=== PATIENT | female | born 1995 | race Caucasian/White ===

== ENCOUNTER → 2018-05-20 | Outpatient (CLI) | payer BC ==
--- NOTE | 2018-05-20 11:58 | BD ---
EXAMINATION TYPE: Axial Bone Density DATE OF EXAM: 05/20/2018 COMPARISON: NONE CLINICAL HISTORY: Height: 144 Weight: 5 FT 3 3/4 IN FRAX RISK QUESTIONS: Secondary Osteoporosis: Current Tobacco Use: RISK FACTORS HISTORY OF: Active: YES MEDICATIONS: Additional Medications: DEPO Additional History: EXAM MEASUREMENTS: Bone mineral densitometry was performed using the [employer] System. Bone mineral density as measured about the Lumbar spine is: ----- L1-L4(G/cm2): 1.184 T Score Values are as follows: ----- L2: 0.3 ----- L3: 0.8 ----- L4: -1.3 ----- L1-L4: 0.0 BASELINE Bone mineral density about the R hip (g/cm2): 1.119 Bone mineral density about the L hip (g/cm2): 1.096 T Score values are as follows: -----R Neck: 0.6 -----L Neck: 0.4 -----R Total: 0.1 -----L Total: 0.1 BASELINE IMPRESSION: Normal (Values between +1 and -1 indicate normal bone mass). Consider repeating this study in 5 year s or sooner if there is some new clinical indication. NOTE: T-SCORE=SD OF THE YOUNG ADULT MEAN.
== END | disposition home or self-care (01) ==
LOC: RADBDWWP 07:20
PROVIDERS: ATTEND Obstetrics & Gynecology
DX: Z13.820 Encounter for screening for osteoporosis (principal)
CPT/HCPCS: 77080

== ENCOUNTER → 2022-01-09 | Outpatient (CLI) | payer OTHER ==
--- NOTE | 2022-01-10 05:59 | BD ---
EXAMINATION TYPE: Axial Bone Density DATE OF EXAM: 01/09/2022 COMPARISON: The CLINICAL HISTORY: 26 years year old Female. ICD-10 CODE: Z30.42 DEPO CONTRACEPTION Height: 5 FT 3 1/2 IN Weight: 164 FRAX RISK QUESTIONS: Alcohol (3 or more units per day): NO Family History (Parent hip fracture): NO Glucocorticoids (More than 3mos): NO (Ex: prednisone, prednisolone, methylprednisolone, dexamethasone, and hydrocortisone). History of Fracture in Adulthood: NO Secondary Osteoporosis: 1. Type 1 Diabetes: NO 2. Hyperthyroidism: NO 3. Menopause before 45: NA 4. Malnutrition: NO 5. Chronic liver disease: NO Rheumatoid Arthritis: NO Current Tobacco Use: VAPE RISK FACTORS HISTORY OF: Surgery to Spine/Hip(right/left)/Wrist (right/left): NO Family History of Osteoporosis: NO Active: YES Diet low in dairy products/other sources of calcium: NO Postmenopausal woman: NO Take estrogen and/or progesterone medications: DEPO FOR SINCE 2016 Lost more than 2 inches in height since high school: NO Frequent falls: NO Poor Health: GOOD Hyperparathyroidism: NO Adrenal Insufficiency: NO MEDICATIONS: Additional Medications: DEPO, LEXAPRO, TOPAMAX, MIGRAINE MEDS Additional History: EXAM MEASUREMENTS: Bone mineral densitometry was performed using the [employer] System. Bone mineral density as measured about the Lumbar spine is: ----- L1-L4(G/cm2): 1.165 T Score Values are as follows: ----- L1: -0.1 ----- L2: 0.3 ----- L3: 0.5 ----- L4: -1.1 ----- L1-L4: -0.1 Bone mineral density has: DECREASED -0.1 % since study of: 2017 Bone mineral density about the R hip (g/cm2): 1.034 Bone mineral density about the L hip (g/cm2): 1.031 T Score values are as follows: -----R Neck: 0.0 -----L Neck: 0.0 -----R Total: -0.4 -----L Total: -0.5 Bone mineral density has: DECREASED -6.5 % since study of: 2017 PT TOO YOUNG FOR FRAX NUMBERS IMPRESSION: Bone mineral density is within normal limits for patient's age based on Z-scores. NOTE: T-SCORE=SD OF THE YOUNG ADULT MEAN.
== END | disposition home or self-care (01) ==
LOC: RADBDWWP 09:20
PROVIDERS: ATTEND Obstetrics & Gynecology
DX: Z30.42 Encounter for surveillance of injectable contraceptive (principal)
CPT/HCPCS: 77080

== ENCOUNTER 2022-03-23 04:31 | Emergency (ER) | payer OTHER ==
[2022-03-23 04:38] VITALS: BP 112/75; PULSE 108; RESP 16; TEMP 99.9
--- NOTE | 2022-03-23 05:29 | ED ---
URI HPI - General Chief Complaint: Upper Respiratory Infection Stated Complaint: Headache, Fever, Sore Throat Time Seen by Provider: 03/23/22 05:20 Source: patient Mode of arrival: ambulatory Limitations: no limitations - History of Present Illness Initial Comments: Patient is 26-year-old woman here to have evaluation for upper respiratory symptoms, fever, known code lid exposure. Patient denies dyspnea. No hemoptysis. MD Complaint: fever, cough, sore throat, nasal congestion Onset/Timin -: days(s) Consistency: constant Improves With: nothing Context: sick contacts Associated Symptoms: fever, rhinorrhea, nasal congestion, sore throat, cough Treatments Prior to Arrival: none - Related Data Allergies Allergy/AdvReac Type Severity Reaction Status Date / Time Penicillins AdvReac Unknown Verified 03/23/22 04:34 Childhood Review of Systems ROS Statement: Those systems with pertinent positive or pertinent negative responses have been documented in the HPI. ROS Other: All systems not noted in ROS Statement are negative. Constitutional: Reports: fever. Denies: chills ENT: Reports: throat pain, congestion Respiratory: Reports: cough. Denies: dyspnea, wheezes, hemoptysis Cardiovascular: Denies: chest pain Gastrointestinal: Denies: abdominal pain, vomiting, diarrhea Genitourinary: Denies: dysuria, hematuria Musculoskeletal: Denies: back pain Skin: Denies: rash Neurological: Denies: headache Past Medical History Past Medical History: No Reported History Additional Past Medical History / Comment(s): migraines History of Any Multi-Drug Resistant Organisms: None Reported Past Surgical History: No Surgical Hx Reported Past Psychological History: Depression Smoking Status: Vaper Past Alcohol Use History: Occasional Past Drug Use History: None Reported General Exam Limitations: no limitations General appearance: alert, in no apparent distress Head exam: Present: atraumatic, normocephalic Eye exam: Present: normal appearance. Absent: scleral icterus, conjunctival injection Neck exam: Present: normal inspection Respiratory exam: Present: normal lung sounds bilaterally. Absent: respiratory distress, wheezes, rales, rhonchi, stridor Cardiovascular Exam: Present: regular rate, normal rhythm, normal heart sounds. Absent: systolic murmur, diastolic murmur, rubs, gallop GI/Abdominal exam: Present: soft. Absent: distended, guarding, rebound, rigid Extremities exam: Present: normal inspection, normal capillary refill. Absent: pedal edema, calf tenderness Back exam: Present: normal inspection Neurological exam: Present: alert Skin exam: Present: warm, dry, intact, normal color. Absent: rash Course Vital Signs 03/23/22 04:34 Temperature 99.9 F H Pulse Rate 108 H Respiratory 16 Rate Blood Pressure 112/75 O2 Sat by Pulse 97 Oximetry Medical Decision Making - Lab Data Lab Results 03/23/22 Range/Units 04:38 Coronavirus (PCR) Detected A (Not Detectd) Disposition Clinical Impression: COVID-19 Disposition: HOME SELF-CARE Condition: Good Instructions (If sedation given, give patient instructions): COVID-19 (Coronavirus Disease 2019) (ED) Is patient prescribed a controlled substance at d/c from ED?: No Referrals: Juan Banks MD [Primary Care Provider] - 1-2 days
[2022-03-23] MEDS ORDERED: LIDOCAINE VISCOUS 2% 15 ML CUP MUCOUS MEM STA (05:38)
== END 2022-03-23 05:54 | disposition home or self-care (01) ==
LOC: EC 04:31
DX: U07.1 COVID-19 (principal); F17.290 Nicotine dependence, other tobacco product, uncomplicated; Z88.0 Allergy status to penicillin
CPT/HCPCS: 87635; 99283

== ENCOUNTER 2022-10-06 09:57 | Inpatient (IN) | payer OTHER ==
--- NOTE | 2022-10-06 10:24 | ED ---
Fever HPI - General Chief Complaint: Fever Stated Complaint: Fever Time Seen by Provider: 10/06/22 10:20 Source: patient, RN notes reviewed Mode of arrival: ambulatory Limitations: no limitations - History of Present Illness Initial Comments: This is a 26 year old female who presents to the emergency department for fevers, nausea, and vomiting x36-48 hours. Denies any associated abdominal pain. She is unable to keep anything down. States that she cannot get the fever to break, but denies taking Ibuprofen or Tylenol because she is unable to keep it down. Denies any new coughing, shortness of breath, chest pain, or sick contacts. She has been on Bactrim for the last week. This was prescribed by her PCP for an abscess on the left side of her mid abdomen. She does believe that this is improving. Denies any sore throat, cough, dyspnea, chest pain, palpitations, abdominal pain, diarrhea, back pain, or headaches. MD Complaint: fever Onset/Timin -: days(s) Associated Symptoms: nausea, vomiting Treatments Prior to Arrival: none - Related Data Home Medications Medication Instructions Recorded Confirmed ALPRAZolam [Xanax] 0.25 mg PO DAILY 10/06/22 10/06/22 Escitalopram Oxalate [Lexapro] 20 mg PO DAILY 10/06/22 10/06/22 Furosemide [Lasix] 20 mg PO Q48H 10/06/22 10/06/22 Medroxyprogesterone Acetate 150 mg IM Q84D 10/06/22 10/06/22 [Depo-Provera] Sulfamethox-Tmp 800-160Mg [Bactrim 1 tab PO BID 10/06/22 10/06/22 DS 800-160 mg] Topiramate [Topamax] 50 mg PO DAILY 10/06/22 10/06/22 Allergies Allergy/AdvReac Type Severity Reaction Status Date / Time Penicillins AdvReac Rash/Hives Verified 10/06/22 12:29 Review of Systems ROS Statement: Those systems with pertinent positive or pertinent negative responses have been documented in the HPI. ROS Other: All systems not noted in ROS Statement are negative. Past Medical History Past Medical History: No Reported History Additional Past Medical History / Comment(s): migraines History of Any Multi-Drug Resistant Organisms: None Reported Past Surgical History: No Surgical Hx Reported Past Psychological History: Depression Smoking Status: Vaper Past Alcohol Use History: Occasional Past Drug Use History: None Reported General Exam General appearance: alert, in no apparent distress Head exam: Present: atraumatic, normocephalic, normal inspection Respiratory exam: Present: normal lung sounds bilaterally. Absent: respiratory distress, wheezes, rales, rhonchi, stridor Cardiovascular Exam: Present: normal rhythm, tachycardia GI/Abdominal exam: Present: soft, normal bowel sounds. Absent: distended, tenderness, guarding, rebound, rigid Neurological exam: Present: alert, oriented X3, CN II-XII intact Psychiatric exam: Present: normal affect, normal mood Skin exam: Present: warm, dry, intact, normal color. Absent: rash Course Vital Signs 10/06/22 10/06/22 10/06/22 10:21 13:09 14:56 Temperature 101.9 F H 102.1 F H 98.4 F Pulse Rate 118 H 103 H 86 Respiratory 20 18 15 Rate Blood Pressure 111/75 97/56 87/55 O2 Sat by Pulse 96 96 96 Oximetry 10/06/22 10/06/22 10/06/22 14:57 16:00 16:19 Temperature Pulse Rate Respiratory Rate Blood Pressure 83/56 93/48 86/48 O2 Sat by Pulse Oximetry Medical Decision Making - Medical Decision Making This is a 26-year-old female who presents to the emergency department for a fever. Was pt. sent in by a medical professional or institution? @ -No Did you speak to anyone other than the patient for history? @ -No Did you review nursing and triage notes? @ -Agree, accurate with regards to the patient's symptoms. Were old charts reviewed? @ -No Differential Diagnosis? @ -Differential Fever: Pneumonia, viral URI, endocarditis, myocarditis, pericarditis, otitis, sinusitis, peritonsillar Abscess, retropharyngeal Abscess, epiglottitis, peritonitis, appendicitis, Estefani cystitis, diverticulitis, hepatitis, colitis, UTI, PID, TOA, pyelonephritis, prostatitis, epididymitis, meningitis, encephalitis, pulmonary embolism, CVA, thyroid storm, pancreatitis, adrenal crisis, cavernous sinus thrombosis, this is not meant to be an all-inclusive list. What testing was considered but not performed? (CT, X-rays, U/S, labs)? Why? @ -None What meds were considered but not given? Why? @ -None Did you discuss the management of the patient with other professionals? @ -No Did you reconcile home meds? @ -No Was smoking cessation discussed for >3mins.? @ -No Was critical care preformed (if so, how long)? @ -No Were there social determinants of health that impacted care today? How? (Homelessness, low income, unemployed, alcoholism, drug addiction, transportation, low edu. Level, literacy, decrease access to med. care, longterm, rehab)? @ -No Was there de-escalation of care discussed even if they declined? (Discuss DNR or withdrawal of care, Hospice)? @ -No What co-morbidities impacted this encounter? (DM, HTN, Smoking, COPD, CAD, Cancer, CVA, Hep., AIDS, mental health diagnosis, sleep apnea, morbid obesity)? @ -None Was patient admitted / discharged? @ -Lab work obtained and found to be nonactionable. Patient negative for Covid, influenza, and RSV. Ultrasound of the cyst on her abdomen was obtained. This was consistent with subcutaneous inflammation and no drainable abscess was identified. Tylenol did not treat the fever whatsoever and she was subse quently given ibuprofen and a 500mL bolus of IV fluids. This did successfully bring her fever down, however her blood pressure continued to drop. She was then given a liter bolus of IV fluids with little to no improvement. She then got up to walk around, she walked a lap around the emergency department and went to the bathroom. She continued to remain hypotensive afterwards. Afterwards, her blood pressure was taken manually, this also revealed that she was hypotensive. Case discussed with her PCP Dr. Banks, who accepts the patient for admission. Patient started on maintenance IV fluids. Drug Therapy requiring intensive monitoring for toxicity (Heparin, Nitro, Insu arash, Cardizem)? @ -None Were any procedures done? @ -None Diagnosis/symptom? @ -Hypotension Acute, or Chronic, or Acute on Chronic? @ -Acute Uncomplicated (without systemic symptoms) or Complicated (systemic symptoms)? @ -Complicated Side effects of treatment? @ -None Exacerbation, Progression, or Severe Exacerbation] @ -Not applicable Poses a threat to life or bodily function? @ -Yes Diagnosis/symptom? @ -Fever Acute, or Chronic, or Acute on Chronic? @ -Acute Uncomplicated (without systemic symptoms) or Complicated (systemic symptoms)? @ -Complicated Side effects of treatment? @ -None Exacerbation, Progression, or Severe Exacerbation] @ -Not applicable Poses a threat to life or bodily function? @ -Yes This case was discussed in detail with the attending ED physician. Presentation, findings, and treatment plan discussed in detail as well. - Lab Data Result diagrams: 10/06/22 11:40 10/06/22 11:41 Lab Results 10/06/22 10/06/22 10/06/22 Range/Units 10:26 11:40 11:41 WBC 6.6 (3.8-10.6) k/uL RBC 4.55 (3.80-5.40) m/uL Hgb 13.2 (11.4-16.0) gm/dL Hct 39.0 (34.0-46.0) % MCV 85.7 (80.0-100.0) fL MCH 29.1 (25.0-35.0) pg MCHC 34.0 (31.0-37.0) g/dL RDW 12.2 (11.5-15.5) % Plt Count 319 (150-450) k/uL MPV 7.5 Neutrophils % 86 % Lymphocytes % 4 % Monocytes % 6 % Eosinophils % 2 % Basophils % 0 % Neutrophils # 5.7 (1.3-7.7) k/uL Lymphocytes # 0.3 L (1.0-4.8) k/uL Monocytes # 0.4 (0-1.0) k/uL Eosinophils # 0.1 (0-0.7) k/uL Basophils # 0.0 (0-0.2) k/uL Sodium (137-145) mmol/L Potassium (3.5-5.1) mmol/L Chloride (98-107) mmol/L Carbon Dioxide (22-30) mmol/L Anion Gap mmol/L BUN (7-17) mg/dL Creatinine (0.52-1.04) mg/dL Est GFR (CKD-EPI)AfAm (>60 ml/min/1.73 sqM) Est GFR (CKD-EPI)NonAf (>60 ml/min/1.73 sqM) Glucose (74-99) mg/dL Plasma Lactic Acid Koby (0.7-2.0) mmol/L Calcium (8.4-10.2) mg/dL Total Bilirubin (0.2-1.3) mg/dL AST (14-36) U/L ALT (4-34) U/L Alkaline Phosphatase (38-126) U/L Total Protein (6.3-8.2) g/dL Albumin (3.5-5.0) g/dL Urine Color Yellow Urine Appearance Cloudy H (Clear) Urine pH 6.0 (5.0-8.0) Ur Specific Industry 1.033 (1.001-1.035) Urine Protein 2+ H (Negative) Urine Glucose (UA) Negative (Negative) Urine Ketones 3+ H (Negative) Urine Blood Negative (Negative) Urine Nitrite Negative (Negative) Urine Bilirubin Negative (Negative) Urine Urobilinogen 2.0 (<2.0) mg/dL Ur Leukocyte Esterase Large H (Negative) Urine RBC 4 (0-5) /hpf Urine WBC 32 H (0-5) /hpf Ur Squamous Epith Cells 11 H (0-4) /hpf Urine Bacteria Occasional H (None) /hpf Urine Mucus Many H (None) /hpf Urine Yeast (Budding) Occasional H (None) /hpf Urine HCG, Qual (Not Detectd) Influenza Type A (PCR) Not Detected (Not Detectd) Influenza Type B (PCR) Not Detected (Not Detectd) RSV (PCR) Not Detected (Not Detectd) SARS-CoV-2 (PCR) Not Detected (Not Detectd) 10/06/22 10/06/22 10/06/22 Range/Units 11:41 11:41 11:41 WBC (3.8-10.6) k/uL RBC (3.80-5.40) m/uL Hgb (11.4-16.0) gm/dL Hct (34.0-46.0) % MCV (80.0-100.0) fL MCH (25.0-35.0) pg MCHC (31.0-37.0) g/dL RDW (11.5-15.5) % Plt Count (150-450) k/uL MPV Neutrophils % % Lymphocytes % % Monocytes % % Eosinophils % % Basophils % % Neutrophils # (1.3-7.7) k/uL Lymphocytes # (1.0-4.8) k/uL Monocytes # (0-1.0) k/uL Eosinophils # (0-0.7) k/uL Basophils # (0-0.2) k/uL Sodium 132 L (137-145) mmol/L Potassium 4.2 (3.5-5.1) mmol/L Chloride 104 (98-107) mmol/L Carbon Dioxide 18 L (22-30) mmol/L Anion Gap 10 mmol/L BUN 10 (7-17) mg/dL Creatinine 0.91 (0.52-1.04) mg/dL Est GFR (CKD-EPI)AfAm >90 (>60 ml/min/1.73 sqM) Est GFR (CKD-EPI)NonAf 87 (>60 ml/min/1.73 sqM) Glucose 94 (74-99) mg/dL Plasma Lactic Acid Koby 1.0 (0.7-2.0) mmol/L Calcium 8.3 L (8.4-10.2) mg/dL Total Bilirubin 0.5 (0.2-1.3) mg/dL AST 29 (14-36) U/L ALT 28 (4-34) U/L Alkaline Phosphatase 95 (38-126) U/L Total Protein 6.8 (6.3-8.2) g/dL Albumin 4.3 (3.5-5.0) g/dL Urine Color Urine Appearance (Clear) Urine pH (5.0-8.0) Ur Specific Industry (1.001-1.035) Urine Protein (Negative) Urine Glucose (UA) (Negative) Urine Ketones (Negative) Urine Blood (Negative) Urine Nitrite (Negative) Urine Bilirubin (Negative) Urine Urobilinogen (<2.0) mg/dL Ur Leukocyte Esterase (Negative) Urine RBC (0-5) /hpf Urine WBC (0-5) /hpf Ur Squamous Epith Cells (0-4) /hpf Urine Bacteria (None) /hpf Urine Mucus (None) /hpf Urine Yeast (Budding) (None) /hpf Urine HCG, Qual Not Detected (Not Detectd) Influenza Type A (PCR) (Not Detectd) Influenza Type B (PCR) (Not Detectd) RSV (PCR) (Not Detectd) SARS-CoV-2 (PCR) (Not Detectd) - Radiology Data Radiology results: report reviewed, image reviewed Disposition Clinical Impression: Hypotension, Fever Disposition: ADMITTED IP TO THIS HOSP Referrals: Juan Banks MD [Primary Care Provider] - 1-2 days
[2022-10-06] MEDS ORDERED: ACETAMINOPHEN TAB 500 MG TAB PO STA (10:25)
[2022-10-06] MEDS ORDERED: ONDANSETRON ODT 4 MG TAB PO STA (10:26)
[2022-10-06 12:19] LABS: ALT 28 U/L (4-34); AST 29 U/L (14-36); African American GFR (CKD) >90 (>60 ml/min/1.73 sqM); Albumin 4.3 g/dL (3.5-5.0); Alkaline Phosphatase 95 U/L (38-126); Anion Gap 10 mmol/L; Blood Urea Nitrogen 10 mg/dL (7-17); Calcium 8.3 mg/dL (8.4-10.2); Carbon Dioxide 18 mmol/L (22-30); Chloride 104 mmol/L (98-107); Glucose 94 mg/dL (74-99); Non-African American GFR(CKD) 87 (>60 ml/min/1.73 sqM); Potassium 4.2 mmol/L (3.5-5.1); Sodium 132 mmol/L (137-145); Total Bilirubin 0.5 mg/dL (0.2-1.3); Total Protein 6.8 g/dL (6.3-8.2)
[2022-10-06 12:20] LABS: Basophils % (A) 0 %; Eosinophils # (A) 0.1 k/uL (0-0.7); Eosinophils % (A) 2 %; HGB 13.2 gm/dL (11.4-16.0); Lymphocytes # (A) 0.3 k/uL (1.0-4.8); Lymphocytes % (A) 4 %; MCH 29.1 pg (25.0-35.0); MCV 85.7 fL (80.0-100.0); Mean Platelet Volume 7.5; Monocytes # (A) 0.4 k/uL (0-1.0); Monocytes % (A) 6 %; Neutrophils # (A) 5.7 k/uL (1.3-7.7); Neutrophils % (A) 86 %; Platelet Count 319 k/uL (150-450); RBC 4.55 m/uL (3.80-5.40); RDW 12.2 % (11.5-15.5); WBC 6.6 k/uL (3.8-10.6)
[2022-10-06] MEDS ORDERED: IBUPROFEN 800 MG TAB PO STA (12:54)
[2022-10-06 13:12] LABS: Appearance,Urine Cloudy (Clear); Bacteria,Urine Occasional /hpf; Bilirubin,Urine Negative (Negative); Blood,Urine Negative (Negative); Budding Yeast,Urine Occasional /hpf; Color,Urine Yellow; Glucose,Urine (UA) Negative (Negative); Ketones,Urine 3+ (Negative); Leukocyte Esterase,Urine Large (Negative); Mucus,Urine Many /hpf; Nitrite,Urine Negative (Negative); Protein,Urine 2+ (Negative); RBC,Urine 4 /hpf (0-5); Specific Gravity,Urine 1.033 (1.001-1.035); Squamous Epithelial Cell,Urine 11 /hpf (0-4); WBC,Urine 32 /hpf (0-5)
--- NOTE | 2022-10-06 14:29 | US ---
EXAMINATION TYPE: US abdomen limited DATE OF EXAM: 10/06/2022 COMPARISON: NONE CLINICAL HISTORY: Cyst on abdomen. Pt in ER for fever, has skin redness and small palpable lump left superficial abdomen x 1-2 weeks/ area appears to be healing per tech Small, subdermal hypoechoic area at pt's palpable= 3 x 1 x 3mm in size. IMPRESSION: As above. Subcutaneous inflammation and/or developing scar needs to be considered. No dr benitez fluid collection or abscess seen.
[2022-10-06] MEDS ORDERED: SODIUM CHLORIDE 0.9% 1,000 ML IV STA (15:04)
[2022-10-06] MEDS ORDERED: KETOROLAC 15 MG/ML 1 ML VIAL IVP PRN (17:00)
[2022-10-06] MEDS ORDERED: IBUPROFEN 400 MG TAB PO PRN (17:00)
[2022-10-06] MEDS ORDERED: NALOXONE 0.4 MG/ML 1 ML VIAL IV PRN (17:00)
[2022-10-06] MEDS ORDERED: FUROSEMIDE 20 MG TAB PO ONE (17:15)
[2022-10-06] MEDS: ONDANSETRON 4 MG/2 ML VIAL IVP PRN (17:26)
[2022-10-06] MEDS: ALPRAZolam 0.25 MG TAB PO SCH (17:56)
[2022-10-06] MEDS: TOPIRAMATE 25 MG TAB PO SCH (17:56)
[2022-10-06] MEDS: ESCITALOPRAM 20 MG TAB PO SCH (17:56)
[2022-10-06] MEDS: SODIUM CHLORIDE 0.9% 1,000 ML IV SCH (17:57)
[2022-10-06 18:02] LABS: Amphetamine Screen,Urine Not Detected (NotDetected); Barbiturate Screen,Urine Not Detected (NotDetected); Benzodiazepines Screen,Urine Detected (NotDetected); Cocaine Screen,Urine Not Detected (NotDetected); Methadone Screen, Urine Not Detected (NotDetected); Opiate Screen,Urine Not Detected (NotDetected); Oxycodone Screen, Urine Not Detected (NotDetected); Phencyclidine Screen,Urine Not Detected (NotDetected); Tricyclic Antidepressant,Urine Not Detected (NotDetected); Urn Cannabinoid Scrn Not Detected (NotDetected)
[2022-10-07] MEDS: ONDANSETRON 4 MG/2 ML VIAL IVP PRN (01:19)
[2022-10-07] MEDS: SODIUM CHLORIDE 0.9% 1,000 ML IV SCH ×3 (01:35→17:39)
[2022-10-07] MEDS: ACETAMINOPHEN TAB 325 MG TAB PO PRN ×2 (02:47→20:27)
[2022-10-07] MEDS: ESCITALOPRAM 20 MG TAB PO SCH (10:27)
[2022-10-07] MEDS: TOPIRAMATE 25 MG TAB PO SCH (10:27)
[2022-10-07] MEDS: ALPRAZolam 0.25 MG TAB PO SCH (10:27)
[2022-10-07] MEDS: diphenhydrAMINE 25 MG CAP PO PRN (18:35)
--- NOTE | 2022-10-07 22:23 | HP ---
HISTORY AND PHYSICAL HISTORY OF PRESENT ILLNESS: A 26-year-old white female, nausea, vomiting for 24 to 48 hours, abdominal pain, unable to keep anything down, low-grade fevers. She has been on Bactrim for the past week. She is admitted for acute viral infection and dehydration. Kept for hypotension overnight. Fluids have been going. HOME MEDICATIONS: 1. Xanax. 2. Lexapro. 3. Lasix. 4. Depo-Provera. 5. Bactrim. 6. Topamax. ALLERGIES: Penicillin. REVIEW OF SYSTEMS: A 14-point review of systems is negative except as mentioned in HPI. PAST MEDICAL HISTORY: Depression. PHYSICAL EXAMINATION: VITAL SIGNS: Stable, afebrile. CARDIOVASCULAR: S1, S2. T-max 102.1, pulse is 80s to 110s. Blood pressure is 80s to 111 over 50s to 70s. CARDIOVASCULAR: S1, S2. LUNGS: Clear. GI: Soft. HEMATOLOGY: Negative for Homans. PSYCH: Fair mood and affect. ASSESSMENT: Fever, most likely viral syndrome, gastroenteritis with progressive nausea, vomiting, rule out urinary tract infection. White count is normal at 6.5, hemoglobin is 13.2. Influenza A/B negative. COVID negative. PCR, RSV negative. Prognosis guarded. Follow up in the next 24 to 48 hours for hypotension, fever. To rehydrate. Monitor for viral syndrome. Blood cultures. MMODL / IJN: [id number] /
[2022-10-08] MEDS: SODIUM CHLORIDE 0.9% 1,000 ML IV SCH ×3 (01:00→13:42)
[2022-10-08] MEDS: diphenhydrAMINE 25 MG CAP PO PRN (06:51)
[2022-10-08 07:50] VITALS: BP 93/59; PULSE 75; TEMP 98.4
[2022-10-08] MEDS ORDERED: FUROSEMIDE 20 MG TAB PO SCH (09:00)
[2022-10-08] MEDS: ESCITALOPRAM 20 MG TAB PO SCH (09:30)
[2022-10-08] MEDS: ALPRAZolam 0.25 MG TAB PO SCH (09:30)
[2022-10-08] MEDS: TOPIRAMATE 25 MG TAB PO SCH (09:31)
[2022-10-08 09:58] LABS: HCT 39.3 % (34.0-46.0); HGB 13.1 gm/dL (11.4-16.0); MCH 28.6 pg (25.0-35.0); MCHC 33.3 g/dL (31.0-37.0); MCV 85.9 fL (80.0-100.0); Mean Platelet Volume 7.7; Platelet Count 200 k/uL (150-450); RBC 4.58 m/uL (3.80-5.40); RDW 12.9 % (11.5-15.5); WBC 3.8 k/uL (3.8-10.6)
[2022-10-08 10:03] LABS: ALT 54 U/L (4-34); AST 52 U/L (14-36); African American GFR (CKD) >90 (>60 ml/min/1.73 sqM); Albumin 3.5 g/dL (3.5-5.0); Albumin/Globulin Ratio 1.6; Alkaline Phosphatase 84 U/L (38-126); Anion Gap 9 mmol/L; Blood Urea Nitrogen 8 mg/dL (7-17); Calcium 7.9 mg/dL (8.4-10.2); Carbon Dioxide 20 mmol/L (22-30); Chloride 110 mmol/L (98-107); Globulin 2.2 g/dL; Glucose 74 mg/dL (74-99); Non-African American GFR(CKD) >90 (>60 ml/min/1.73 sqM); Potassium 3.9 mmol/L (3.5-5.1); Sodium 139 mmol/L (137-145); Total Bilirubin 0.5 mg/dL (0.2-1.3); Total Protein 5.7 g/dL (6.3-8.2)
[2022-10-08 10:51] VITALS: RESP 16
[2022-10-08 11:57] LABS: Band Neutrophils % 1 %; Eosinophils # (M) 0.38 k/uL (0-0.7); Lymphocytes # (M) 1.37 k/uL (1.0-4.8); Neutrophils % (M) 45 %; Nucleated Red Blood Cells 0 /100 WBC (0-0); Total Cells Counted 100
[2022-10-08 12:00] LABS: RBC Morphology Normal
[2022-10-08] MEDS ORDERED: methylPREDNISolone SOD SUCCI 40 MG/ML 1 ML VIAL IV SCH (12:00)
[2022-10-08 12:05] LABS: Erythrocyte Sedimentation Rate 8 mm/hr (0-20)
[2022-10-08] MEDS ORDERED: VANCOMYCIN IV PER PHARMACY 1 EACH MISC MISCELLANE PRN (12:22)
--- NOTE | 2022-10-08 12:50 | CT ---
EXAMINATION TYPE: CT abdomen pelvis wo con DATE OF EXAM: 10/08/2022 COMPARISON: None INDICATION: non-specific abdominal pain. DLP: 527.9 mGycm, Automated exposure control for dose reduction was used. CONTRAST: 0 mL of Isovue 300. Study performed without Oral Contrast TECHNIQUE: Axial images were obtained from above the diaphragm to the pubic rami in the axial plane a t 5 mm thick sections. Reconstructed images are reviewed on the computer in the coronal plane. FINDINGS: Limited CT sections are obtained the lung bases. Minimal right pleural effusion is present. Very min imal left pleural effusion may be present. CT ABDOMEN: Liver: There is a 1.5 cm cyst on the left lobe liver Spleen: Normal Pancreas: Normal Adrenal glands: The adrenal glands are normal. Gallbladder: Normal Kidneys: No masses are evident. No hydronephrosis is present. No cysts are present. No renal stone s are evident. Aorta: Normal Inferior vena cava: Normal. CT PELVIS: Loops of bowel within the abdomen and pelvis are normal. Diverticulosis without acute diverticulitis is present Study is without oral contrast limiting bowel evaluation Appendix: Normal as visualized. Urinary bladder: Diffusely thickened urinary bladder wall. There is incomplete distention which may p artially account for this finding. Consider cystitis within the differential Genitourinary structures: Uterus and adnexa as visualized appear normal Osseous structures: No suspicious lytic or sclerotic lesions. IMPRESSIONS: 1. Very minimal bilateral pleural effusions. 2. Sigmoid Diverticulosis without acute diverticulitis. 3. Diffusely thickened urinary bladder wall. Clinical correlation for cystitis is recommended
[2022-10-08] MEDS ORDERED: VANCOMYCIN 1,500 MG in SODIUM CHLORIDE 0.9% 500 ML 500 ML IVPB SCH (13:00)
--- NOTE | 2022-10-08 19:47 | P.CONS ---
History of Present Illness - Reason for Consult Consult date: 10/08/22 the rash Requesting physician: Juan Banks - Chief Complaint Fever and rash x few days - History of Present Illness Patient is a 26 year old female with a past medical history significant for migraine headaches patient did develop pimples on the left lower abdominal area about a week ago which apparently the patient did scratch subsequently noticed the area becoming more swollen and red for the patient was evaluated in the outpatient setting by urgent care and was treated with oral Keflex patient mentioned she started having a fever and chills and she att ributed that to Keflex stopped taking it subsequently has been evaluated by her primary care physician and the patient was started on Bactrim DS with the patient has taken for about 3-4 days patient is presenting to the [facility] ER 2 days ago for evaluation of fever nausea and vomiting 3 days and the patient is also develop a rash subsequently has increased in intensity throughout her body and she denies having any sore in her mouth or any joint swelling intensity was consulted last night for the rash and need for antibiotic therapy. The patient's small area of induration to the left lower abdominal area seemed have decreased intensity due to mild aching pain 2-3 out of 10 however she denies having any drainage from it Review of Systems Positive point has been mentioned in the HPI rest of the systems are negative Past Medical History Past Medical History: No Reported History Additional Past Medical History / Comment(s): migraines History of Any Multi-Drug Resistant Organisms: None Reported Past Surgical History: No Surgical Hx Reported Past Psychological History: Depression Smoking Status: Vaper Past Alcohol Use History: Occasional Past Drug Use History: None Reported Medications and Allergies Home Medications Medication Instructions Recorded Confirmed Type ALPRAZolam [Xanax] 0.25 mg PO DAILY 10/06/22 10/06/22 History Escitalopram Oxalate [Lexapro] 20 mg PO DAILY 10/06/22 10/06/22 History Furosemide [Lasix] 20 mg PO Q48H 10/06/22 10/06/22 History Medroxyprogesterone Acetate 150 mg IM Q84D 10/06/22 10/06/22 History [Depo-Provera] Sulfamethox-Tmp 800-160Mg [Bactrim 1 tab PO BID 10/06/22 10/06/22 History DS 800-160 mg] Topiramate [Topamax] 50 mg PO DAILY 10/06/22 10/06/22 History Allergies Allergy/AdvReac Type Severity Reaction Status Date / Time Penicillins AdvReac Rash/Hives Verified 10/06/22 12:29 Physical Exam Vitals: Vital Signs Temp Pulse Resp BP Pulse Ox 10/08/22 06:45 98.4 F 75 15 93/59 98 10/08/22 02:41 98.2 F 76 15 89/57 98 10/07/22 20:20 99.6 F 68 15 97/66 97 10/07/22 14:02 98.4 F 80 17 114/74 96 Intake and Output 10/07/22 10/08/22 10/08/22 22:59 06:59 14:59 Other: Voiding Method Toilet # Voids 2 0 GENERAL DESCRIPTION: Middle-aged female lying in bed, no distress. No tachypnea or accessory muscle of respiration use. HEENT: Shows Pallor , no scleral icterus. Oral mucous membrane is dry. No pharyngeal erythema or thrush NECK: Trachea central, no thyromegaly. LUNGS: Unlabored breathing. Clear to auscultation anteriorly. No wheeze or crackle. HEART: S1, S2, regular rate and rhythm. No loud murmur ABDOMEN: Soft, mildly area of induration left lower abdominal area no fluctuation or drainage EXTREMITIES: No edema of feet. SKIN: Diffuse maculopapular rash and no vesicles. NEUROLOGICAL: The patient is awake, alert, oriented x3, mood and affect normal. Results CBC & Chem 7: 10/08/22 09:26 10/08/22 09:26 Labs: Abnormal Lab Results - Last 24 Hours (Table) 10/08/22 Range/Units 09:26 Chloride 110 H (98-107) mmol/L Carbon Dioxide 20 L (22-30) mmol/L Calcium 7.9 L (8.4-10.2) mg/dL AST 52 H (14-36) U/L ALT 54 H (4-34) U/L Total Protein 5.7 L (6.3-8.2) g/dL Microbiology - Last 24 Hours (Table) 10/06/22 11:41 Urine Culture - Final Urine,Clean Catch Assessment and Plan Plan: 1patient with diffuse maculopapular rash likely related to Bactrim DS which has been discontinued patient is currently on Solu-Medrol may need a short course of oral prednisone on discharge 2-left lower abdominal wall cellulitis with no evidence of any abscess on the ultrasound likely from gram-positive skin heidi daily given her penicillin ALLERGY the patient has been started on vancomycin pharmacy to dose while watching her kidney function closely and if the patient continued to improve to finish therapy with oral doxycycline We will follow on clinical condition and cultures to further adjust medication if needed Thank you for this consultation will follow this patient with you Time with Patient: Greater than 30
--- NOTE | 2022-10-09 01:30 | PN ---
PROGRESS NOTE SUBJECTIVE: This is a 26-year-old white female who comes in, she has a worsening rash overnight, possibly a Bactrim rash, per Infectious Disease started on vancomycin for hypocellular abdominal wall cellulitis. We did abdominal pelvic CAT scan which shows a 1.5 cm cyst on the left lobe of the liver. No hydronephrosis, diverticulosis without diverticulitis, thickened urinary bladder wall, incomplete distention, possible cystitis. PROGNOSIS: Guarded. Continue with broad-spectrum vancomycin and start Bactrim. Solu-Medrol will be continued. Dr. Almanza was consulted, please see further orders. MMODL / IJN: [id number] /
[2022-10-09] MEDS ORDERED: VANCOMYCIN TROUGH DUE 1 EACH MISC MISCELLANE ONE (12:00)
== END 2022-10-08 17:57 | disposition home or self-care (01) | DRG 392 ==
LOC: EC 09:57 → 4SSUR 16:58
PROVIDERS: ADMIT Family Medicine; ATTEND Family Medicine
DX: A08.4 Viral intestinal infection, unspecified (principal); L03.311 Cellulitis of abdominal wall; Z20.822 Contact with and (suspected) exposure to COVID-19; K76.89 Other specified diseases of liver; N30.90 Cystitis, unspecified without hematuria; T36.8X5A Adverse effect of other systemic antibiotics, initial encounter; I95.9 Hypotension, unspecified; G43.909 Migraine, unspecified, not intractable, without status migrainosus; F32.A Depression, unspecified; Z79.899 Other long term (current) drug therapy; Z88.0 Allergy status to penicillin; Z88.2 Allergy status to sulfonamides; Z88.1 Allergy status to other antibiotic agents; X58.XXXA Exposure to other specified factors, initial encounter
CPT/HCPCS: 36415; 74176; 76705; 80053; 80306; 81001; 81025; 83605; 85025; 85652; 86038; 87086; 87636; 96361; 96374; 99285

== ENCOUNTER 2022-10-09 14:54 | Emergency (ER) | payer OTHER ==
[2022-10-09] MEDS ORDERED: diphenhydrAMINE 50 MG/ML 1 ML VIAL IVP STA (15:39)
[2022-10-09] MEDS ORDERED: FAMOTIDINE 20 MG/2 ML VIAL IV STA (15:39)
[2022-10-09] MEDS ORDERED: DEXAMETHASONE SOD PHOSPHATE 10 MG/ML 1 ML VIAL IVP STA (15:39)
[2022-10-09] MEDS ORDERED: MORPHINE SULFATE 2 MG/ML SYRINGE IVP STA (15:39)
[2022-10-09] MEDS ORDERED: KETOROLAC 15 MG/ML 1 ML VIAL IVP STA (15:39)
[2022-10-09] MEDS ORDERED: ONDANSETRON 4 MG/2 ML VIAL IVP STA (15:40)
[2022-10-09] MEDS ORDERED: SODIUM CHLORIDE 0.9% 1,000 ML IV STA (15:40)
--- NOTE | 2022-10-09 16:12 | ED ---
Allergic Reaction HPI - General Chief complaint: Allergic Reaction Stated complaint: Allergic reaction, chest pain Time Seen by Provider: 10/09/22 15:34 Source: patient, family, RN notes reviewed Mode of arrival: ambulatory Limitations: no limitations - History of Present Illness Initial Comments: This is a 26-year-old female who presents to the emergency department for an allergic reaction. She was admitted here from 10/06 through 10/08 for hypotension. She had been on Bactrim for an abscess on her abdomen, however she started to develop a rash and was told to discontinue this. They had intended to start her on doxycycline, however she states that this was never prescribed and she continued to take the Bactrim. The hives persisted and she saw her primary care provider earlier today who prescribed her prednisone. She has not been taking any antihistamines or H2 blockers. Reports associated nausea. Denies any chest pain or shortness of breath. Denies any fevers, chills, sore throat, cough, dyspnea, chest pain, palpitations, abdominal pain, vomiting, diarrhea, back pain, or headaches. MD Complaint: allergic reaction, hives Exposure: medication Symptoms: rash, itching, nausea Treatment Prior to Arrival: steroids - Related Data Home Medications Medication Instructions Recorded Confirmed ALPRAZolam [Xanax] 0.25 mg PO DAILY 10/06/22 10/06/22 Escitalopram Oxalate [Lexapro] 20 mg PO DAILY 10/06/22 10/06/22 Furosemide [Lasix] 20 mg PO Q48H 10/06/22 10/06/22 Medroxyprogesterone Acetate 150 mg IM Q84D 10/06/22 10/06/22 [Depo-Provera] Sulfamethox-Tmp 800-160Mg [Bactrim 1 tab PO BID 10/06/22 10/06/22 DS 800-160 mg] Topiramate [Topamax] 50 mg PO DAILY 10/06/22 10/06/22 Previous Rx's Medication Instructions Recorded HYDROcodone/APAP 7.5-325MG [[place] 1 tab PO Q6HR PRN 3 Days #12 tab 10/09/22 7.5-325] Ondansetron Odt [Zofran Odt] 4 mg PO Q8HR PRN #20 tab 10/09/22 Allergies Allergy/AdvReac Type Severity Reaction Status Date / Time ceftriaxone [From Rocephin] Allergy Rash/Hives Verified 10/09/22 15:18 sulfamethoxazole Allergy Rash/Hives Verified 10/09/22 15:18 [From Bactrim] trimethoprim [From Bactrim] Allergy Rash/Hives Verified 10/09/22 15:18 Penicillins AdvReac Rash/Hives Verified 10/09/22 15:18 Review of Systems ROS Statement: Those systems with pertinent positive or pertinent negative responses have been documented in the HPI. ROS Other: All systems not noted in ROS Statement are negative. Past Medical History Past Medical History: No Reported History Additional Past Medical History / Comment(s): migraines, viral infection History of Any Multi-Drug Resistant Organisms: None Reported Past Surgical History: No Surgical Hx Reported Past Psychological History: Depression Smoking Status: Vaper Past Alcohol Use History: Occasional Past Drug Use History: None Reported General Exam Limitations: no limitations General appearance: alert Head exam: Present: atraumatic, normocephalic, normal inspection Respiratory exam: Present: normal lung sounds bilaterally. Absent: respiratory distress, wheezes, rales, rhonchi, stridor Cardiovascular Exam: Present: regular rate, normal rhythm, normal heart sounds. Absent: systolic murmur, diastolic murmur, rubs, gallop, clicks Neurological exam: Present: alert, oriented X3, CN II-XII intact Psychiatric exam: Present: normal affect, normal mood Skin exam: Present: other (Urticaria on the bilateral upper and lower extremities, trunk, and face. There is no blistering or sloughing of the skin. Negative Nikolsky sign.) Course Vital Signs 10/09/22 10/09/22 10/09/22 15:15 16:11 18:25 Temperature 97.8 F 97.6 F Pulse Rate 101 H 93 89 Respiratory 20 20 18 Rate Blood Pressure 90/59 100/62 97/64 O2 Sat by Pulse 98 100 Oximetry Medical Decision Making - Medical Decision Making This is a 26-year-old female who presents to the emergency department for an allergic reaction. Was pt. sent in by a medical professional or institution? @ -No Did you speak to anyone other than the patient for history? @ -No Did you review nursing and triage notes? @ -Disagree, patient denies any chest pain. Were old charts reviewed? @ -Yes, admission from 10/06-10/08. Differential Diagnosis? @ -Allergic reaction, contact dermatitis, meningitis, [place] Nigel syndrome, toxic shock syndrome, Kawasaki disease, recommend spotted fever, acute rheumatic fever, viral exanthem, varicella, lyme disease, this is not meant to be an all- inclusive list. What testing was considered but not performed? (CT, X-rays, U/S, labs)? Why? @ -None What meds were considered but not given? Why? @ -None Did you discuss the management of the patient with other professionals? @ -Yes, Dr. Banks, the patient's PCP. He advised that she can go home with pain medication or be admitted for IV steroids. Did you reconcile home meds? @ -No Was smoking cessation discussed for >3mins.? @ -No Was critical care preformed (if so, how long)? @ -No Were there social determinants of health that impacted care today? How? (Homelessness, low income, unemployed, alcoholism, drug addiction, tr ansportation, low edu. Level, literacy, decrease access to med. care, senior care, rehab)? @ -No Was there de-escalation of care discussed even if they declined? (Discuss DNR or withdrawal of care, Hospice)? @ -No What co-morbidities impacted this encounter? (DM, HTN, Smoking, COPD, CAD, Cancer, CVA, Hep., AIDS, mental health diagnosis, sleep apnea, morbid obesity)? @ -None Was patient admitted / discharged? @ -Discharged. She was given IV fluids, Decadron, Benadryl, Pepcid, morphine, and toradol. She had minor improvement in her pain with medication administration. Advised that it will take several days for the rash itself to improve. She was then given ODT Zofran with oral [place] to see if she could tolerate this. We discussed admission for IV steroids versus discharge home with pain medication. She requests to try discharge home at this time. She has no blistering or sloughing of the skin to suggest a more severe at etiology. Advised she continue the steroids prescribed. She is instructed to take Pepcid and Benadryl with this as well. Prescription for [place] and Zofran provided for additional pain and nausea. Advised she take the [place] sparingly and otherwise take Tylenol for her pain. Drug Therapy requiring intensive monitoring for toxicity (Heparin, Nitro, Insulin, Cardizem)? @ -None Were any procedures done? @ -None Diagnosis/symptom? @ -Urticaria Acute, or Chronic, or Acute on Chronic? @ -Acute Uncomplicated (without systemic symptoms) or Complicated (systemic symptoms)? @ -Uncomplicated Side effects of treatment? @ -None Exacerbation, Progression, or Severe Exacerbation] @ -Not applicable Poses a threat to life or bodily function? @ -Yes, the severity is impacting her ability to function. Return precautions reviewed in depth, the patient is instructed to return to the emergency department with any new, worsening, or concerning symptoms. Patient verbalized understanding. This case was discussed in detail with the attending ED physician. Presentation, findings, and treatment plan discussed in detail as well. Disposition Clinical Impression: Allergic reaction to drug Disposition: HOME SELF-CARE Instructions (If sedation given, give patient instructions): Urticaria (ED), General Allergic Reaction (ED) Additional Instructions: Return to the emergency department with any new, worsening, or concerning symptoms. Take the [place] sparingly when your pain is the most severe and otherwise alternate with ibuprofen and Tylenol. Take the Zofran up to every 8 hours as needed for nausea and vomiting. Continue to take Pepcid and Benadryl as well. Follow up with your primary care provider in 1-2 days. Prescriptions: HYDROcodone/APAP 7.5-325MG [[place] 7.5-325] 1 tab PO Q6HR PRN 3 Days #12 tab PRN Reason: Pain Ondansetron Odt [Zofran Odt] 4 mg PO Q8HR PRN #20 tab PRN Reason: Nausea And Vomiting Is patient prescribed a controlled substance at d/c from ED?: Yes When asked, does pt state using other controlled substances?: No If prescribed controlled substance>3 days was MAPS reviewed?: Prescribed <3 Days Referrals: Juan Banks MD [Primary Care Provider] - 1-2 days
[2022-10-09] MEDS ORDERED: HYDROcodone/APAP 5-325MG 1 EACH TAB PO STA (17:35)
[2022-10-09] MEDS ORDERED: ONDANSETRON ODT 4 MG TAB PO STA (17:35)
[2022-10-09 18:37] VITALS: BP 97/64; PULSE 89; RESP 18; TEMP 97.6
== END 2022-10-09 18:37 | disposition home or self-care (01) ==
LOC: EC 14:54
DX: T36.8X5A Adverse effect of other systemic antibiotics, initial encounter (principal); F32.A Depression, unspecified; F17.290 Nicotine dependence, other tobacco product, uncomplicated; Z88.1 Allergy status to other antibiotic agents; Z88.2 Allergy status to sulfonamides; Z88.0 Allergy status to penicillin
CPT/HCPCS: 99284; 96374; 96375 ×5; 96361; J1200; J1100; J2405; J2270; J1885

== ENCOUNTER → 2024-09-17 | Outpatient (CLI) | payer OTHER ==
--- NOTE | 2024-09-26 23:04 | MR ---
EXAMINATION TYPE: MR knee RT wo con DATE OF EXAM: 09/17/2024 COMPARISON: NONE HISTORY: Right knee pain x 4-5 months, no trauma. Meniscal tear and osteoarthritis per order. TECHNIQUE: Multiplanar, multisequence images of the knee is performed without IV contrast. FINDINGS: MEDIAL MENISCUS: Globular Increased signal posterior horn does not definitively extend to articular s urface. LATERAL MENISCUS: Anterior and posterior horns are intact without tear. CRUCIATE LIGAMENTS: The anterior and posterior cruciate ligaments are intact and unremarkable. COLLATERAL LIGAMENTS: The medial collateral ligament and lateral collateral ligament complex are inta ct and unremarkable. EXTENSOR MECHANISM: Visualized quadriceps and patellar tendons are intact. EFFUSION: No significant suprapatellar joint effusion. POPLITEAL CYST: No popliteal/bernard cyst. TRICOMPARTMENT SPACES: Mild tricompartment joint space loss. Mild spurring patellofemoral compartment . CARTILAGE: Tricompartmental articular cartilage is preserved. BONE MARROW SIGNAL: Heterogeneous increased T2 signal inferior aspect of the patella. OTHER: No additional significant abnormality is appreciated. IMPRESSION: 1. Mild Tricompartment degenerative changes most prominent patellofemoral compartment where there is some abnormal bone marrow edema inferior portion of the patella. 2. At least intrasubstance tear posterior horn of medial meniscus. No definitive full-thickness menis reji tear. [facility], , 09/26/2024 11:01 PM
== END | disposition home or self-care (01) ==
LOC: RADMRIMAIN 14:53
PROVIDERS: ATTEND Family Medicine
DX: S83.241A Other tear of medial meniscus, current injury, right knee, initial encounter (principal); M17.11 Unilateral primary osteoarthritis, right knee